=== PATIENT | male | born 1945 | race Caucasian/White ===

== ENCOUNTER 2018-07-20 13:38 | Observation (INO) ==
--- NOTE | 2018-07-20 13:56 | Emergency Department Note ---
Disposition Clinical Impression: Upper GI bleed Disposition: Admitted As Inpatient Condition: Fair Time of Disposition: 14:23 GI Bleed HPI - General Stated complaint: gi bleed Time Seen by Provider: 07/20/18 13:49 Source: patient, EMS Mode of arrival: EMS Limitations: no limitations Nursing Notes Reviewed: Yes Vital Signs Reviewed: Yes - History of Present Illness HPI Narrative: Patient presents to the ED with the chief complaint of lower GI bleed. Patient was a transfer from the [facility]. Patient states he has had lower abdominal pain with melena over the last week. No previous history of GI bleeding. He is not anticoagulated. He does not think that he is on any aspirin or Plavix either. Denies any fever or chills. No chest pain or shortness breath. Denies any current abdominal pain. Denies any hematemesis. No rashes. Outpatient labs were as follows. INR 1.0 Sodium 139, potassium 3.9, chloride 106, glucose 156, BUS and 20, creatinine 1.11, hemoglobin 8.1, hematocrit 25.1, MCV 94.2, platelets 304 Patient did get 500 mL of normal saline Patient has allergies to Lasix, potassium and lisinopril - Related Data Home Medications Medication Instructions Recorded Confirmed Acetaminophen [Tylenol Arthritis] 1,300 mg PO Q8H 07/20/18 07/20/18 Cholecalciferol (D-3) [Vitamin D] 2,000 unit PO DAILY 07/20/18 07/20/18 DiphenhydraMINE [Benadryl] 25 mg PO Q8HR 07/20/18 07/20/18 Gabapentin [Neurontin] 300 mg PO TID 07/20/18 07/20/18 Melatonin [Melatin] 3 mg PO HS PRN 07/20/18 07/20/18 Ranitidine HCl [Acid [facility] Nurse] 150 mg PO BID 07/20/18 07/20/18 metFORMIN [Glucophage] 500 mg PO BIDWM 07/20/18 07/20/18 Allergies Allergy/AdvReac Type Severity Reaction Status Date / Time No Known Allergies Allergy Verified 07/20/18 14:05 Review of Systems: As reviewed in the HPI. All other systems reviewed are negative or normal. Past Medical History - Past Medical History Attestation: Yes The following information was validated with the patient. Source: patient Physical Exam CONSTITUTIONAL: [well appearing, alert and in no acute distress] EYES: [EOMI, clear conjunctiva, PERRLA] HENT: [Normocephalic, atraumatic, moist mucus membranes, normal oropharynx] NECK: [normal inspection, full ROM, trachea midline, no obvious swelling] PULMONARY: [normal lung sounds bilaterally, normal chest rise and fall, no respiratory distress or stridor, no wheezes, no rales, no rhonchi CARDIOVASCULAR: [regular rate, regular rhythm, normal heart sounds, no murmurs, distal extremities are warm and well perfused] GASTROINSTESTINAL: [soft, non-tender, non-rigid, obese but non-distended, no guarding, no rebound, normal bowel sounds] GENITOURINARY/RECTAL: [deferred] NEUROLOGIC: [Alert, oriented x3, normal speech, moves all extremities] EXTREMITIES: [Normal inspection, full ROM, no tenderness, no pedal edema, normal capillary refill] MUSCULOSKELETAL: [no gross deformities, atraumatic] SKIN: [No cyanosis, no diaphoresis, normal color, warm, no rash] PSYCHIATRIC: [normal mood and affect] Course Course Narrative: I spoke with the hospitalist at 1422. However, he declined admission at this t manasa because he was unable to review the patient's chart as the patient has not registered yet. Patient has been here for 43 minutes. We will attempt of registration register him so he can be admitted. Patient stable. - Reevaluation(s) Reevaluation #1: Patient is now registered. Patient admitted the hospital service. Did request that we speak with GI, which we will do. Patient remained stable. Hemoglobin did drop 7.9, but still no indication for emergent transfusion. Reevaluation #2: Spoke with GI, they will see the patient in consult and will possibly scope the patient tomorrow time allowing. Time: 15:35 Vital Signs Temperature 98.8 F 07/20/18 13:59 Pulse Rate 101 07/20/18 13:59 Respiratory Rate 20 07/20/18 13:59 Blood Pressure 151/72 07/20/18 13:59 O2 Sat by Pulse Oximetry 98 07/20/18 13:59 Temperature 98.8 F 07/20/18 13:59 Pulse Rate 101 07/20/18 13:59 Respiratory Rate 20 03/01/19 13:59 Blood Pressure 151/72 07/20/18 13:59 O2 Sat by Pulse Oximetry 98 07/20/18 13:59 Oxygen Delivery Oxygen Delivery Room Air GI Bleed - Lab Data Result diagrams: 07/20/18 20:40 Lab Results 07/20/18 07/20/18 07/20/18 Range/Units 14:10 14:10 14:10 Hgb 7.9 L (12.9-16.9) g/dL Hct 24.6 L (37.5-50.1) % Iron 16 L (65-175) mcg/dL % Saturation 4 L (20-55) % Transferrin 274 (203-362) mg/dL Blood Type O POSITIVE Antibody Screen NEGATIVE Critical Care Time Total Critical Care Time: 30 Attestation: I personally spent ___30___ minutes devoted to the care of this critically ill patient. This time excludes the time for billable procedures. Dr. Suggs Attestation Statement - Attestation Attestation: DR Suggs note: Please see the chart of Resident Dr Micha Matos for complete documentation. I spent [id number] time with the patient and I agree with the patient's treatment and disposition. Progressive weakness and dark stools for 4-5 days. Denies prior upper endoscopy. He is on antiacids for known gastritis. No abdominal pain to palpation at this time. Denies prior history of blood transf usion. Vital stable at time of admission. He was given IV fluids and may require blood products for acute blood loss anemia.
[2018-07-20 14:33] LABS: Hematocrit 24.6 % (37.5-50.1); Hemoglobin 7.9 g/dL (12.9-16.9)
[2018-07-20] MEDS ORDERED: Naloxone 0.4 MG/ML INJ IVP PRN (15:00)
[2018-07-20] MEDS ORDERED: *HR* Dextrose 50 % in Water (Syg) 50 ML SYRINGE IVP PRN (15:22)
[2018-07-20] MEDS ORDERED: D5% in Water 1,000 ML IVC PRN (15:22)
[2018-07-20] MEDS ORDERED: Dextrose 4 GM Chewable Tablets PO PRN ×2 (15:22)
[2018-07-20] MEDS ORDERED: Dextrose Gel 15 GM/37.5 ML TUBE PO PRN ×2 (15:22)
[2018-07-20 15:28] LABS: % Iron Saturation 4 % (20-55); Iron 16 mcg/dL (65-175); Transferrin 274 mg/dL (203-362)
[2018-07-20] MEDS: Pantoprazole 40 MG VIAL IVP SCH (15:28)
[2018-07-20] MEDS: 0.9 % Sodium Chloride 1,000 ML IVC SCH (15:28)
--- NOTE | 2018-07-20 16:15 | Internal Med History&Physical ---
Date of Encounter: 07/20/18 Time of Encounter: 15:30 Internal Medicine - H&P: HPI Chief complaint: melena Admitted From: Hospital to Hospital Transfer History of present illness: Mr. Gerber is a 72 year old male with past history of diabetes, hypertension, morbid obesity, who presented to the [facility] urgent care due to melanotic stool. States that his stool color turned black about 5 days ago. He initially didn't take it seriously but due to its persistence and mild generalized weakness associated with it, he went to urgent care to get checked. Hb turned out 8.1 (unsure of baseline) and was immediately sent to [facility] for further management. He also complains of mild epigastric discomfort that had been going on at the same time. Sharp, non-radiating, no aggravating/relieving factors. He denies any pain medications usage but upon reviewing the chart from [facility], Indomethacin was listed as one of his home medications. Otherwise, chest pain, shortness of breath, lightheadedness, palpitation, or worsening leg swelling. No fever/chills, nausea/vomiting, hematemesis, bright red blood per rectum, or hemoptysis. Has a joint pain or rash. In the ED, he was afebrile and hemodynamically stable. Repeat hemoglobin came back at 7.9. INR and platelet count from [facility] were reviewed, which were both normal. He was admitted for further management. Past Med Surg Social Fam HX - Past Medical History Attestation: Yes The following information was validated with the patient. Medical history: diabetes, hypertension Psychiatric history: no psych history - Past Surgical History Surgical History: no surgical history - Social History Smoking Status: Former smoker Smokeless Tobacco Status: No Alcohol use: none Drug use: none - Additional Family History Additional family history: Negative for GI malignancy Internal Medicine - H&P: Meds Acetaminophen [Tylenol Arthritis] 1,300 mg PO Q8H 07/20/18 [History] Cholecalciferol (D-3) [Vitamin D] 2,000 unit PO DAILY 07/20/18 [History] DiphenhydraMINE [Benadryl] 25 mg PO Q8HR 07/20/18 [History] Gabapentin [Neurontin] 300 mg PO TID 07/20/18 [History] Melatonin [Melatin] 3 mg PO HS PRN 07/20/18 [History] Ranitidine HCl [Acid Travertine Installer] 150 mg PO BID 07/20/18 [History] metFORMIN [Glucophage] 500 mg PO BIDWM 07/20/18 [History] Allergy/AdvReac Type Severity Reaction Status Date / Time No Known Allergies Allergy Verified 07/20/18 14:05 All Systems PM: A 10-system review of systems was performed and is negative for pertinent findings except as documented above in the HPI. - Constitutional Vitals: Temp Pulse Resp BP Pulse Ox 98.8 F 92 20 125/64 98 07/20/18 13:59 07/20/18 15:42 07/20/18 15:42 07/20/18 15:42 07/20/18 15:42 Exam: General: Alert and oriented, not in acute distress. HEENT:EOMI, pupils equal, round and reactive. Cardiovascular:Normal S1 & S2, No JVD. Pulse regular. Lungs: clear to auscultation, no wheezes/rales Abdomen:Soft, mild epigastric tenderness without rebound/guarding/rigidity Extremities: Chronic venous stasis changes in the lower extremities Neurological:Normal cognition and motor skills. Non-focal Skin: no rash, no lesions. Pulses:Carotid and radial pulses normal +2. Rest of the physical exam is non contributory Internal Med - H&P Results - Labs CBC & Chem 7: 07/20/18 14:10 Labs: Short CBC 07/20/18 Range/Units 14:10 Hgb 7.9 L (12.9-16.9) g/dL Hct 24.6 L (37.5-50.1) % - Assessment and Plan (1) Upper GI bleed Current Visit: Yes Status: Acute Assessment and plan: Presented with 5 day history of melena with hemoglobin 8 ?use of indomethacin at home but pt is not sure ([facility]) suspect upper GI cause check FOBT NPO, IV protonix trend H&H GI consult for possible EGD, appreciate input (2) Anemia Current Visit: Yes Status: Acute Assessment and plan: associated with above check iron profile, replete if low Qualifiers: Anemia type: unspecified type Qualified Code(s): D64.9 - Anemia, unspecified (3) HTN (hypertension) Current Visit: Yes Status: Chronic Assessment and plan: holding off on meds Qualifiers: Hypertension type: essential hypertension Qualified Code(s): I10 - Essential (primary) hypertension (4) Diabetes Current Visit: Yes Status: Chronic Assessment and plan: On metformin at home, hold Q6H sliding scale with Accu-Chek Qualifiers: Diabetes mellitus type: type 2 Diabetes mellitus transit worker insulin use: without transit worker use Diabetes mellitus complication status: with unspecified complications Qualified Code(s): E11.8 - Type 2 diabetes mellitus with unspecified complications (5) DVT prophylaxis Current Visit: Yes Status: Acute Assessment and plan: EPCD - Time Spent With Patient Total time spent is greater than 50% in coordination of care (as documented) at patient's floor/unit and/or counseling patient: Greater than 35 minutes
[2018-07-20] MEDS: Insulin LISPRO 300 UNITS/3 ML VIAL SQ SCH (17:35)
[2018-07-20] MEDS: Sodium Ferric Gluconat/Sucrose 125 MG in 0.9 % Sodium Chloride 100 ML IVPB SCH (17:35)
[2018-07-20 20:53] LABS: Hematocrit 23.9 % (37.5-50.1); Hemoglobin 7.5 g/dL (12.9-16.9)
[2018-07-21] MEDS: Insulin LISPRO 300 UNITS/3 ML VIAL SQ SCH ×4 (02:35→16:57)
[2018-07-21 04:22] LABS: Basophils # 0.1 K/mcL (0.0-0.2); Basophils % 0.8 %; Eosinophils # 0.5 K/mcL (0.0-0.6); Hematocrit 24.1 % (37.5-50.1); Hemoglobin 7.6 g/dL (12.9-16.9); Immature Granulocytes % 0.3 % (0-4); Lymphocytes # 2.5 K/mcL (0.6-4.6); Lymphocytes % 27.3 %; Mean Corpuscular HGB Conc 31.5 g/dL (31.6-35.5); Mean Corpuscular Hemoglobin 29.9 pg (28.0-33.3); Mean Corpuscular Volume 94.9 fL (83.0-100.0); Mean Platelet Volume 8.7 fL (9.4-12.4); Monocytes # 0.7 K/mcL (0.0-1.3); Monocytes % 7.6 %; Neutrophils # 5.5 K/mcL (1.6-8.9); Platelet Count 262 K/mcL (140-400); Red Blood Count 2.54 M/mcL (4.19-5.50); Red Cell Distribution Width 14.5 % (11.5-14.5)
[2018-07-21 04:41] LABS: BUN/Creatinine Ratio 15 (6-26); Blood Urea Nitrogen 14 mg/dL (8-23); Calcium 8.3 mg/dL (8.6-10.3); Carbon Dioxide 22 mEq/L (23-29); Chloride 110 mEq/L (98-107); Glucose 106 mg/dL (70-105); Osmolality,Calculated 291 (280-300); Potassium 3.9 mEq/L (3.5-5.1); Sodium 140 mEq/L (136-145); eGFR For Non-African Americans > 60 (> 60)
[2018-07-21] MEDS: 0.9 % Sodium Chloride 1,000 ML IVC SCH (05:41)
[2018-07-21] MEDS: Pantoprazole 40 MG VIAL IVP SCH (05:41)
[2018-07-21] MEDS: Sodium Ferric Gluconat/Sucrose 125 MG in 0.9 % Sodium Chloride 100 ML IVPB SCH (08:39)
[2018-07-21 10:28] LABS: Hematocrit 24.4 % (37.5-50.1); Hemoglobin 7.7 g/dL (12.9-16.9)
[2018-07-21] MEDS ORDERED: Simethicone 40 MG/0.6 ML MLS IR ONE (10:38)
[2018-07-21] MEDS ORDERED: Tetracaine/Benzocaine/Butamben 1 SPRAY AEROSOL MM ONE (10:38)
--- NOTE | 2018-07-21 11:30 | Anesthesia Evaluation PreOp ---
Date of Encounter: 07/21/18 Time of Encounter: 11:27 - Past History Planned Operation: EGD Cardiac History: HTN Pulmonary History: Former smoker SILO FILLER History: Denies Any Significant HX Other Medical History: Diabetes Type II, Other (Morbid Obeaity BMI - 45) Anesthesia History: Past Anesthesia (Knee scope), Problems (Difficult airway per anesthesiologist) Alcohol Use: none Drug use: none Medications and Allergies Acetaminophen [Tylenol Arthritis] 1,300 mg PO Q8H 07/20/18 [History] Cholecalciferol (D-3) [Vitamin D] 2,000 unit PO DAILY 07/20/18 [History] DiphenhydraMINE [Benadryl] 25 mg PO Q8HR 07/20/18 [History] Gabapentin [Neurontin] 300 mg PO TID 07/20/18 [History] Melatonin [Melatin] 3 mg PO HS PRN 07/20/18 [History] Ranitidine HCl [Acid Truck Headlight Assembler] 150 mg PO BID 07/20/18 [History] metFORMIN [Glucophage] 500 mg PO BIDWM 07/20/18 [History] Allergy/AdvReac Type Severity Reaction Status Date / Time No Known Allergies Allergy Verified 07/20/18 14:05 - Meds/Allergy Pre-op Review Medications Reviewed: Yes Allergies Reviewed: Yes Beta Blockers on Current Med List: No Anesthesia Results - Labs 07/21/18 09:46 07/21/18 04:07 Anesthesia Exam Vital Signs/O2 Sat, Most Current Temp Pulse Resp BP Pulse Ox 97.9 F 91 16 154/82 99 07/21/18 11:11 07/21/18 11:11 07/21/18 11:11 07/21/18 11:11 07/21/18 11:11 NPO (# of Hours): > 8 hrs Pain Scale: 0 Pain Scale Used: Numeric (1 - 10) - HEENT Pupil (Motor): Pupils equal, EOMI Mallampati: IV (Difficult intubation in past) Teeth: Poor dentition Oral Opening: Greater than 3 - SILO FILLER LOC: Oriented SILO FILLER Motor: Normal RUE, Normal LUE, Normal RLE, Normal LLE, Normal Face SILO FILLER Sensory: Normal: RUE, LUE, RLE, LLE, Face - Cardiac Rhythm: Regular Murmur: None JVD: No Carotid Bruit: No - Pulmonary Breath Sounds: bilateral Clear Respiratory Effort: Symmetrical Anesthesia Assess/Plan ASA Score: 4 Anesthetic Plan: MAC Autologous Blood: Yes Monitoring Plan: Standard Monitors Recovery Plan: Other
[2018-07-21] MEDS ORDERED: Lidocaine -MPF 2% 2 ML VIAL ONE (11:59)
[2018-07-21] MEDS ORDERED: *HR* Propofol 200 MG/20 ML VIAL IVP ONE (11:59)
[2018-07-21] MEDS ORDERED: KETAMINE HCL 50 MG/ML SYRINGE IV ONE (12:02)
--- NOTE | 2018-07-21 13:42 | Anesthesia Evaluation Post Op ---
Date of Encounter: 07/21/18 Time of Encounter: 13:42 - Vital Signs Vital Signs: Vital Signs/O2 Sat, Most Current Temp Pulse Resp BP Pulse Ox 97.9 F 95 18 140/66 98 07/21/18 11:11 07/21/18 12:00 07/21/18 12:00 07/21/18 12:00 07/21/18 12:00 - Lungs Lungs: Clear Ascult./Percussion - Airway Airway: Non-obstructed - Cardiovascular Regular Rate - Mental Status Mental Status: Alert & Oriented, Answers Appropriately - Pain Pain Scale: 0 Pain Scale used: Numeric (1 - 10) - Nausea Vomiting Nausea Vomiting: Not Present - Hydration Hydration: Tolerates oral liquids, Has not voided - Discharge PostOp Status: Transfer Patient to floor
[2018-07-21 16:36] LABS: Hematocrit 23.3 % (37.5-50.1); Hemoglobin 7.3 g/dL (12.9-16.9)
[2018-07-21] MEDS: Sucralfate 1 GM TABLET PO SCH (16:59)
[2018-07-21 17:44] LABS: % Iron Saturation 23 % (20-55); Iron 83 mcg/dL (65-175); Transferrin 255 mg/dL (203-362)
--- NOTE | 2018-07-21 17:47 | Internal Med Progress Note ---
Hospitalist Progress Note - Encounter Date of Encounter: 07/21/18 Time of Encounter: 17:47 - Subjective Interval History: Patient was examined at bedside currently sitting up in chair status post endoscopy. Denies any pain or discomfort states he feels pretty good discuss results of endoscopy as well as hemoglobin. Advised that would like to monitor him overnight to make sure hemoglobin does not drop any more patient agreed a expensively treatment plan to the patient who verbalized understanding. - Exam Vitals: Temp Pulse Resp BP Pulse Ox 97.8 F 94 16 129/70 96 07/21/18 16:34 07/21/18 16:34 07/21/18 16:34 07/21/18 16:34 07/21/18 16:34 Exam: General: Alert and oriented, not in acute distress. HEENT:EOMI, pupils equal, round and reactive. Cardiovascular:Normal S1 & S2, No JVD. Pulse regular. Lungs: clear to auscultation, no wheezes/rales Abdomen:Soft, mild epigastric tenderness without rebound/guarding/rigidity Extremities: Chronic venous stasis changes in the lower extremities Neurological:Normal cognition and motor skills. Non-focal Skin: no rash, no lesions. Pulses:Carotid and radial pulses normal +2. Rest of the physical exam is non contributory - Assessment and Plan (1) Upper GI bleed Current Visit: Yes Status: Acute Assessment and Plan: Presented with 5 day history of melena with hemoglobin 8 ?use of indomethacin at home but pt is not sure ([facility]) suspect upper GI cause-GI was consulted and appreciate recommendations Patient underwent endoscopy per GI- LA grade a reflux esophagitis gastritis acquired duodenal stenosis one nonbleeding duodenal ulcer with no stigmata of bleeding Advised Carafate 1 g by mouth twice a day as slurry Protonix 40 mg by mouth daily Repeat upper endoscopy in 4 weeks to check for healing follow-up with GI in 2 weeks check FOBT Hemoglobin 7.3 trend H&H-monitor overnight (2) Anemia Current Visit: Yes Status: Acute Assessment and Plan: associated with above Continue with sodium ferric gluconate (3) HTN (hypertension) Current Visit: Yes Status: Chronic Assessment and Plan: Blood pressure stable at this time we will hold medications due to bleeding (4) Diabetes Current Visit: Yes Status: Chronic Assessment and Plan: On metformin at home, hold Accu-Cheks before meals at bedtime with sliding scale insulin Diabetic diet (5) DVT prophylaxis Current Visit: Yes Status: Acute Assessment and Plan: EPCD - Time Spent with Patient Total time spent is greater than 50% in coordination of care (as documented) at patient's floor/unit and/or counseling patient: Internal Medicine: Result - Labs CBC & Chem 7: 07/21/18 16:15 07/21/18 04:07 Labs: Short CBC 07/20/18 07/21/18 07/21/18 Range/Units 20:40 04:07 09:46 WBC 9.3 (4.3-11.1) K/mcL Hgb 7.5 L 7.6 L 7.7 L (12.9-16.9) g/dL Hct 23.9 L 24.1 L 24.4 L (37.5-50.1) % Plt Count 262 (140-400) K/mcL Neutrophils # 5.5 (1.6-8.9) K/mcL 07/21/18 Range/Units 16:15 WBC (4.3-11.1) K/mcL Hgb 7.3 L (12.9-16.9) g/dL Hct 23.3 L (37.5-50.1) % Plt Count (140-400) K/mcL Neutrophils # (1.6-8.9) K/mcL BMP 07/21/18 04:07 Sodium 140 Potassium 3.9 Chloride 110 H Carbon Dioxide 22 L BUN 14 Creatinine 0.96 Glucose 106 H Calcium 8.3 L Consult Discharge Plan - Plan (2) Anemia Qualifiers: Anemia type: unspecified type Qualified Code(s): D64.9 - Anemia, unspecified (3) HTN (hypertension) Qualifiers: Hypertension type: essential hypertension Qualified Code(s): I10 - Essential (primary) hypertension (4) Diabetes Qualifiers: Diabetes mellitus type: type 2 Diabetes mellitus snf insulin use: without snf use Diabetes mellitus complication status: with unspecified complications Qualified Code(s): E11.8 - Type 2 diabetes mellitus with unspecified complications
[2018-07-21] MEDS ORDERED: Melatonin 3 MG TABLET PO PRN (17:56)
[2018-07-21] MEDS ORDERED: *HR* HYDROcodone/Acet 5/325 mg TABLET PO PRN (17:56)
[2018-07-21] MEDS ORDERED: *HR* OxyCODONE Immed Rel 5 MG TABLET PO PRN (17:56)
[2018-07-21] MEDS ORDERED: Acetaminophen 325 MG TABLET PO PRN (17:56)
[2018-07-21] MEDS: Gabapentin 300 MG CAPSULE PO SCH (19:54)
[2018-07-21] MEDS ORDERED: Insulin LISPRO 300 UNITS/3 ML VIAL SQ SCH (21:00)
[2018-07-21 21:04] LABS: Hematocrit 24.5 % (37.5-50.1); Hemoglobin 7.7 g/dL (12.9-16.9)
[2018-07-22 04:08] LABS: Basophils # 0.1 K/mcL (0.0-0.2); Basophils % 0.8 %; Eosinophils # 0.6 K/mcL (0.0-0.6); Eosinophils % 6.7 %; Hemoglobin 7.8 g/dL (12.9-16.9); Immature Granulocytes % 0.5 % (0-4); Lymphocytes # 2.4 K/mcL (0.6-4.6); Lymphocytes % 28.1 %; Mean Corpuscular HGB Conc 31.2 g/dL (31.6-35.5); Mean Corpuscular Hemoglobin 29.7 pg (28.0-33.3); Mean Corpuscular Volume 95.1 fL (83.0-100.0); Mean Platelet Volume 8.9 fL (9.4-12.4); Monocytes # 0.6 K/mcL (0.0-1.3); Monocytes % 7.4 %; Neutrophils # 4.9 K/mcL (1.6-8.9); Platelet Count 293 K/mcL (140-400); Red Blood Count 2.63 M/mcL (4.19-5.50); Red Cell Distribution Width 14.4 % (11.5-14.5); Segmented Neutrophils % 56.5 %
[2018-07-22 04:20] LABS: BUN/Creatinine Ratio 10 (6-26); Blood Urea Nitrogen 10 mg/dL (8-23); Calcium 8.8 mg/dL (8.6-10.3); Carbon Dioxide 24 mEq/L (23-29); Chloride 110 mEq/L (98-107); Glucose 106 mg/dL (70-105); Osmolality,Calculated 291 (280-300); Potassium 3.8 mEq/L (3.5-5.1); Sodium 141 mEq/L (136-145); eGFR For Non-African Americans > 60 (> 60)
[2018-07-22 07:21] VITALS: BP 146/75
[2018-07-22] MEDS ORDERED: Insulin LISPRO 300 UNITS/3 ML VIAL SQ SCH (07:30)
[2018-07-22] MEDS: Sucralfate 1 GM TABLET PO SCH (08:22)
[2018-07-22] MEDS: Gabapentin 300 MG CAPSULE PO SCH (08:22)
[2018-07-22] MEDS ORDERED: Cholecalciferol (D-3) 1,000 UNIT TABLET PO SCH (09:00)
[2018-07-22] MEDS: Sodium Ferric Gluconat/Sucrose 125 MG in 0.9 % Sodium Chloride 100 ML IVPB SCH (09:17)
--- NOTE | 2018-07-22 11:22 | Discharge Summary ---
- NOTES TO OUTPATIENT PROVIDER Notes to Outpatient Provider: Presented with anemia underwent EGD per GI- gastritis nonbleeding duodenal ulcer Carafate 1 g by mouth twice a day as a slurry Prilosec 40 mg by mouth daily follow-up with GI in 2 weeks repeat upper endoscopy in 4 weeks Orders not resulted at time of discharge: Pending orders 07/20/18 15:03 Occult Blood,Stool [BF] Stat Date of Encounter: 07/23/18 Time of Encounter: 11:19 - Discharge Diagnosis (1) Upper GI bleed Priority: Primary Status: Acute (2) Anemia Priority: Secondary Status: Acute Qualifiers: Anemia type: unspecified type Qualified Code(s): D64.9 - Anemia, unspecified (3) HTN (hypertension) Priority: Secondary Status: Chronic Qualifiers: Hypertension type: essential hypertension Qualified Code(s): I10 - Essential (primary) hypertension (4) Diabetes Priority: Secondary Status: Chronic Qualifiers: Diabetes mellitus type: type 2 Diabetes mellitus fci insulin use: without fci use Diabetes mellitus complication status: with unspecified complications Qualified Code(s): E11.8 - Type 2 diabetes mellitus with unspecified complications Hospital course: Mr. Gerber is a 72 year old male past medical history of diabetes hypertension morbid obesity presented to the urgent care due to malonic stools. Stool has been black for possibly 5 days prior to presentation. Also experiencing mild generalized weakness [facility] 8.1-was sent here for evaluation underwent EGD which did show ga stritis and nonbleeding duodenal ulcer started on Carafate and Protonix 40 mg by mouth daily placed on iron supplements. Monitor hemoglobin which stayed stable during admission currently 7.8 denies any chest pain weakness or lightheadedness. No heart history patient will follow-up with GI in 2 weeks and undergo a endoscopy 4 weeks check for healing. Patient will have hemoglobin checked next week he will be sent home with a prescription for iron supplements Carafate and Protonix. Advised patient follow-up with primary care provider verbalized understanding. Currently he is hemodynamically stable and ready for discharge. - Time Spent with Patient Total time spent providing and/or coordinating discharge services: - Discharge Medications Prescriptions: Michael Omeprazole [PriLOSEC] 40 mg PO DAILY@0630 #30 capsule. Sucralfate [Carafate] 1 gm PO 0730,1630 #60 tablet Ferrous Sulfate 325 mg PO DAILY #30 tablet Docusate Sodium [Stool Softener] 100 mg PO DAILY #30 capsule Continue DiphenhydraMINE [Benadryl] 25 mg PO Q8HR Melatonin [Melatin] 3 mg PO HS PRN PRN Reason: Sleep Cholecalciferol (D-3) [Vitamin D] 2,000 unit PO DAILY Gabapentin [Neurontin] 300 mg PO TID metFORMIN [Glucophage] 500 mg PO BIDWM Acetaminophen [Tylenol Arthritis] 1,300 mg PO Q8H No Action Ranitidine HCl [Acid Monogram Maker] 150 mg PO BID Home Medications: Acetaminophen [Tylenol Arthritis] 1,300 mg PO Q8H 07/20/18 [History] Cholecalciferol (D-3) [Vitamin D] 2,000 unit PO DAILY 07/20/18 [History] DiphenhydraMINE [Benadryl] 25 mg PO Q8HR 07/20/18 [History] Gabapentin [Neurontin] 300 mg PO TID 07/20/18 [History] Melatonin [Melatin] 3 mg PO HS PRN 07/20/18 [History] Ranitidine HCl [Acid Monogram Maker] 150 mg PO BID 07/20/18 [History] metFORMIN [Glucophage] 500 mg PO BIDWM 07/20/18 [History] Docusate Sodium [Stool Softener] 100 mg PO DAILY #30 capsule 07/22/18 [Rx] Ferrous Sulfate 325 mg PO DAILY #30 tablet 07/22/18 [Rx] Omeprazole [PriLOSEC] 40 mg PO DAILY@0630 #30 capsule. 07/22/18 [Rx] Sucralfate [Carafate] 1 gm PO 0730,1630 #60 tablet 07/22/18 [Rx] Allergies/Adverse Reactions: Allergy/AdvReac Type Severity Reaction Status Date / Time No Known Allergies Allergy Verified 07/20/18 14:05 Date of admission: 07/20/18 16:02 Primary care physician: PCP AARON Consults: 07/20/18 14:57 Consult to Gastroenterology [CONS] Stat Consulting Provider: Gastroenterology Jessy Reason for Consult: upper GIB Time Notified: 14:57 Call Completed: Yes Discharging clinician: Connie Heredia Anticipated date of discharge: 07/22/18 - Constitutional Vitals: Temp Pulse Resp BP Pulse Ox 97.5 F L 88 16 146/75 98 07/22/18 07:20 07/22/18 07:20 07/22/18 07:20 07/22/18 07:20 07/22/18 07:20 Exam: General: Alert and oriented, not in acute distress. HEENT:EOMI, pupils equal, round and reactive. Cardiovascular:Normal S1 & S2, No JVD. Pulse regular. Lungs: clear to auscultation, no wheezes/rales Abdomen:Soft, mild epigastric tenderness without rebound/guarding/rigidity Extremities: Chronic venous stasis changes in the lower extremities Neurological:Normal cognition and motor skills. Non-focal Skin: no rash, no lesions. Pulses:Carotid and radial pulses normal +2. Rest of the physical exam is non contributory - Patient Status Disposition: Home, Self-Care Condition: Fair Functional capacity at discharge: independent ambulation Overall status at discharge: patient is back to baseline - Ambulatory Orders Ambulatory Orders: Complete Blood Count [HEME] Time Frame: 07/25/18, Facility: [facility], Location: Lab - Discharge Instructions Instructions: Iron Supplements (By mouth), Sucralfate (By mouth), Omeprazole (By mouth), Anemia (GEN) Follow Up With: Sarkis Lee MD [Partnered Physician] - (Referral has been made the office will be calling you to schedule appointment) [facility] Care [facility] - (please call to schedule follow up appointment within 5-7) - Diet and Activity Activity: increase activity as tolerated Diet: advance to your usual diet
== END 2018-07-22 12:47 | disposition home or self-care (01) ==
LOC: 3BNU 13:38 → EMEROOARM 13:38 → 3BNU 16:31
PROVIDERS: ADMIT Internal Medicine; ATTEND Internal Medicine